=== PATIENT | male | born 1965 | race African-American/Black ===

== ENCOUNTER 2016-04-06 08:03 | Inpatient (IN) | payer MEDICAID, OTHER ==
[~2016-04-06] VITALS: Ht 177.8 cm; Wt 68.0 kg
[~2016-04-06 08:03] MED LIST: FERROUS SULFAT325 M2 ORAL; FOLIC ACID1 MG PO; MS CONTIN30 MG PO; NORCO 5-325 TA1 EACH ORAL; PERCOCET 5-3251 EACH ORAL; VICODIN ES 7.51 EACH PO; VITAMIN D1000 UNI1 ORAL
[2016-04-06] MEDS ORDERED: HYDROmorphone 1mg/ml Carpuject IVP ONE ×2 (08:30→10:45)
[2016-04-06] MEDS ORDERED: DiphenhydrAMINE 50mg/ml Inj IVP ONE (08:30)
[2016-04-06] MEDS ORDERED: Ketorolac 30mg Inj IV ONE (08:30)
--- NOTE | 2016-04-06 08:34 | Emergency Room Report ---
History of Present Illness General Chief Complaint: Pain Source: Patient Present Illness HPI Patient presents with body pain is consistent with an exacerbation of his sickle cell. He states that this began to get severe yesterday. His pain in his shoulders and most of his other joints. He denies any fevers or chills. He states his hands felt cold. He is on no significant pain medication at home. He denies any productive cough or chest pain. Denies any nausea vomiting or diarrhea. He has no dysuria. Pain is severe 10/10, constant, aching, joints, not radiating. No MAURICE. He was last admitted and transfused in December. Allergies: Coded Allergies: No Known Allergies (Verified , 12/24/09) Patient History Past Medical History: see triage record Social History: Denies: smoking Social History Narrative at home - girlfriend smokes Reviewed Nursing Documentation: PMH: Agreed, PSxH: Agreed Nursing Documentation-PM Past Medical History: No History, Except For Hx Cardiac Problems: No Hx Hypertension: No Hx Pacemaker: No Hx Asthma: No Hx COPD: No Hx Diabetes: No Hx Cancer: No Hx Gastrointestinal Problems: No Hx Dialysis: No Hx Neurological Problems: No - sickel cell Hx Cerebrovascular Accident: No Hx Seizures: No Review of Systems All Other Systems: negative except mentioned in HPI Physical Exam Vital Signs Date Time Temp Pulse Resp B/P Pulse Ox O2 Delivery O2 Flow Rate FiO2 04/06/16 08:12 98.2 93 24 197/126 96 Room Air Sp02 EP Interpretation: reviewed, normal General Appearance: GCS 15, mild distress - pain Head: normocephalic Eyes: bilateral eye PERRL, bilateral eye conjunctivae pale, bilateral eye normal inspection ENT: moist mucus membranes Neck: supple Respiratory: chest non-tender, lungs clear, normal breath sounds Cardiovascular #1: regular rate, rhythm Cardiovascular #2: 2+ radial (R) Gastrointestinal: normal inspection, normal bowel sounds, non tender, no mass, non-distended Musculoskeletal: back normal, gait/station normal, normal range of motion Neurologic: alert, oriented x3, grossly normal Psychiatric: mood/affect normal - though in pain Skin: warm/dry, pallor Medical Decision Making Diagnostic Impression: Primary Impression: Sickle cell crisis Additional Impressions: Anemia Qualified Codes: D63.8 - Anemia in other chronic diseases classified elsewhere Intractable pain Leukocytosis Qualified Codes: D72.829 - Elevated white blood cell count, unspecified ER Course The patient presents with body pain consistent with a sickle crisis. Differential includes sepsis, crisis, anemia amongst others. Evaluation with labs chest x-ray EKG is undertaken. In addition the patient will be given some hydration and also analgesia. The patient states oxygen helps him and so it shall be ordered. The patient still has significant pain. A second dose of Dilaudid is given to the patient. Labs are significant for leukocytosis and also low H&H. Retic high. Patient still with pain and he needs to be observed in the hospital. He was discussed with Dr. Tinsley who accepted the patient at [facility]. 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 No MD available so admit here. Contact Dr. Mchugh. Laboratory Tests Test 04/06/16 08:55 04/06/16 10:29 White Blood Count 17.3 K/UL (4.8-10.8) H Red Blood Count 2.50 M/UL (4.70-6.10) L Hemoglobin 8.0 G/DL (14.2-18.0) L Hematocrit 23.5 % (42.0-52.0) L Mean Corpuscular Volume 94 FL (80-99) Mean Corpuscular Hemoglobin 31.8 PG (27.0-31.0) H Mean Corpuscular Hemoglobin Concent 33.8 G/DL (32.0-36.0) Red Cell Distribution Width 16.7 % (11.6-14.8) H Platelet Count 210 K/UL (150-450) Mean Platelet Volume 8.2 FL (6.5-10.1) Neutrophils (%) (Auto) 71.2 % (45.0-75.0) Lymphocytes (%) (Auto) 17.9 % (20.0-45.0) L Monocytes (%) (Auto) 8.8 % (1.0-10.0) Eosinophils (%) (Auto) 1.6 % (0.0-3.0) Basophils (%) (Auto) 0.6 % (0.0-2.0) Reticulocyte Count 13.1 % (0.0-2.0) H Prothrombin Time 11.6 SEC (9.30-11.50) H Prothrombin Time INR 1.1 (0.9-1.1) PTT 24 SEC (23-33) Sodium Level 140 mEQ/L (135-145) Potassium Level 3.7 mEQ/L (3.4-4.9) Chloride Level 102 mEQ/L (98-107) Carbon Dioxide Level 24 mEQ/L (20-30) Anion Gap 14 (5-15) Blood Urea Nitrogen 15 mg/dL (7-23) Creatinine 0.8 mg/dL (0.7-1.2) Estimate Glomerular Filtration Rate > 60 mL/min (>60) Glucose Level 136 mg/dL (74-106) H Calcium Level 9.1 mg/dL (8.6-10.2) Total Bilirubin 2.0 mg/dL (0.0-1.2) H Direct Bilirubin 0.5 mg/dL (0.1-0.3) H Aspartate Amino Transferase (AST) 59 U/L (5-40) H Alanine Aminotransferase (ALT) 35 U/L (3-41) Alkaline Phosphatase 126 U/L (40-129) Total Creatine Kinase 51 U/L (38-174) Creatine Kinase MB < 1.5 ng/mL (< 6.7) Creatine Kinase MB Relative Index Troponin I < 0.30 ng/mL (<=0.30) Pro-B-Type Natriuretic Peptide 150 pg/mL (0-125) H Total Protein 6.9 g/dL (6.6-8.7) Albumin 4.5 g/dL (3.5-5.2) Globulin 2.4 g/dL Albumin/Globulin Ratio 1.8 (1.0-2.7) Urine Color Yellow Urine Appearance Clear Urine pH 6.5 (4.5-8.0) Urine Specific [place] 1.010 (1.005-1.035) Urine Protein 3+ (NEGATIVE) H Urine Glucose (UA) Negative (NEGATIVE) Urine Ketones Negative (NEGATIVE) Urine Occult Blood 3+ (NEGATIVE) H Urine Nitrite Negative (NEGATIVE) Urine Bilirubin Negative (NEGATIVE) Urine Urobilinogen 4 MG/DL (0.0-1.0) H Urine Leukocyte Esterase 1+ (NEGATIVE) H Urine RBC 2-4 /HPF (0 - 0) H Urine WBC 2-4 /HPF (0 - 0) Urine Squamous Epithelial Cells Occasional /LPF Urine Bacteria Few /HPF (NONE) Urine Opiates Screen Positive (NEGATIVE) H Urine Barbiturates Screen Negative (NEGATIVE) Phencyclidine (PCP) Screen Negative (NEGATIVE) Urine Amphetamines Screen Negative (NEGATIVE) Urine Benzodiazepines Screen Negative (NEGATIVE) Urine Cocaine Screen Negative (NEGATIVE) Urine Marijuana (THC) Screen Negative (NEGATIVE) EKG Diagnostic Results Rate: normal Rhythm: NSR ST Segments: no acute changes Rhythm Strip Diag. Results EP Interpretation: yes Rhythm: NSR, no PVC's, no ectopy Chest X-Ray Diagnostic Results EP Interpretation: Yes Findings: no consolidation, no effusion, no pneumothorax, no acute cardiopulmonary disease, other - increase R hilar node Number of Views: 1 Last Vital Signs Date Time Temp Pulse Resp B/P Pulse Ox O2 Delivery O2 Flow Rate FiO2 04/06/16 12:00 87 16 130/84 98 Nasal Cannula 2.0 04/06/16 11:15 98.2 Status: improved Disposition: ADMITTED INPATIENT Condition: Serious Carlos Powell M.D. Apr 06, 2016 08:34
[2016-04-06] MEDS ORDERED: Tubing IV Cassette IV ONE (08:42)
[2016-04-06 09:00] VITALS: BP 131/75
[2016-04-06 09:16] LABS: BASOPHILS % (AUTO) 0.6 % (0.0-2.0); EOSINOPHILS % (AUTO) 1.6 % (0.0-3.0); LYMPHOCYTES % (AUTO) 17.9 % (20.0-45.0); MEAN CORPUSCULAR HEMOGLOBIN 31.8 PG (27.0-31.0); MEAN CORPUSCULAR HGB CONC 33.8 G/DL (32.0-36.0); MEAN CORPUSCULAR VOLUME 94 FL (80-99); MEAN PLATELET VOLUME 8.2 FL (6.5-10.1); MONOCYTES % (AUTO) 8.8 % (1.0-10.0); NEUTROPHILS % (AUTO) 71.2 % (45.0-75.0); PLATELET COUNT 210 K/UL (150-450); RED CELL DISTRIBUTION WIDTH 16.7 % (11.6-14.8); WHITE BLOOD COUNT 17.3 K/UL (4.8-10.8)
[2016-04-06 09:17] LABS: INR 1.1 (0.9-1.1); PROTHROMBIN TIME 11.6 SEC (9.30-11.50)
[2016-04-06 09:23] LABS: ALANINE AMINOTRANSFERASE 35 U/L (3-41); ALBUMIN/GLOBULIN RATIO 1.8 (1.0-2.7); ANION GAP 14 (5-15); ASPARTATE AMINO TRANSFERASE 59 U/L (5-40); CALCIUM 9.1 mg/dL (8.6-10.2); CARBON DIOXIDE 24 mEQ/L (20-30); CHLORIDE 102 mEQ/L (98-107); CREATININE 0.8 mg/dL (0.7-1.2); GLOMERULAR FILTRATION RATE > 60 mL/min (>60); HEMOLYSIS 6; POTASSIUM 3.7 mEQ/L (3.4-4.9); SODIUM 140 mEQ/L (135-145); TOTAL PROTEIN 6.9 g/dL (6.6-8.7)
[2016-04-06 09:25] LABS: TROPONIN I < 0.30 ng/mL (<=0.30)
[2016-04-06 09:33] LABS: CKMB < 1.5 ng/mL (< 6.7)
[2016-04-06 09:44] LABS: BILIRUBIN,DIRECT 0.5 mg/dL (0.1-0.3)
[2016-04-06 10:40] LABS: APPEARANCE,URINE CLEAR; KETONES,URINE NEGATIVE (NEGATIVE); LEUKOCYTE ESTERASE ,URINE 1+ (NEGATIVE); NITRITE,URINE NEGATIVE (NEGATIVE); PH,URINE 6.5 (4.5-8.0); PROTEIN,URINE 3+ (NEGATIVE); UROBILINOGEN,URINE 4 MG/DL (0.0-1.0)
[2016-04-06 11:09] LABS: BACTERIA,URINE FEW /HPF; SQUAMOUS EPITHELIAL CELL,UR OCCASIONAL /LPF (NONE/OCC)
[2016-04-06 12:00] VITALS: BP 130/84
[2016-04-06 14:00] VITALS: BP 127/81
[2016-04-06 15:23] VITALS: BP 134/82
[2016-04-06] MEDS ORDERED: Zolpidem 5mg tab ORAL PRN (16:15)
[2016-04-06] MEDS ORDERED: Mylanta II UD 30ml ORAL PRN (16:15)
[2016-04-06] MEDS ORDERED: LORazepam Inj 2mg/ml 1ml IV PRN (16:15)
[2016-04-06 19:00] VITALS: BP 149/91
[2016-04-06] MEDS ORDERED: Heparin 5000 units/ml inj SUBQ SCH (21:00)
[2016-04-06] MEDS: Miralax 17gm pkt ORAL PRN (22:06)
[2016-04-07] VITALS: BP 116/67
[2016-04-07 04:00] VITALS: BP 108/67
[2016-04-07 07:21] LABS: ALANINE AMINOTRANSFERASE 40 U/L (3-41); ALBUMIN/GLOBULIN RATIO 1.5 (1.0-2.7); ANION GAP 15 (5-15); ASPARTATE AMINO TRANSFERASE 62 U/L (5-40); CALCIUM 8.7 mg/dL (8.6-10.2); CARBON DIOXIDE 23 mEQ/L (20-30); CHLORIDE 102 mEQ/L (98-107); CREATININE 0.8 mg/dL (0.7-1.2); GLOMERULAR FILTRATION RATE > 60 mL/min (>60); HEMOLYSIS 6; LACTATE DEHYDROGENASE 632 U/L (135-230); POTASSIUM 4.5 mEQ/L (3.4-4.9); SODIUM 140 mEQ/L (135-145); TOTAL PROTEIN 6.6 g/dL (6.6-8.7)
[2016-04-07 07:23] LABS: MEAN CORPUSCULAR HEMOGLOBIN 31.2 PG (27.0-31.0); MEAN CORPUSCULAR HGB CONC 33.1 G/DL (32.0-36.0); MEAN CORPUSCULAR VOLUME 95 FL (80-99); MEAN PLATELET VOLUME 7.6 FL (6.5-10.1); PLATELET COUNT 177 K/UL (150-450); RED BLOOD COUNT 2.34 M/UL (4.70-6.10); RED CELL DISTRIBUTION WIDTH 17.3 % (11.6-14.8); WHITE BLOOD COUNT 18.3 K/UL (4.8-10.8)
[2016-04-07 08:02] LABS: BILIRUBIN,DIRECT 0.9 mg/dL (0.1-0.3)
[2016-04-07 08:17] VITALS: BP 149/85
[2016-04-07 10:02] LABS: BAND NEUTROPHILS % (MANUAL) 0 % (0-8); BASOPHILS % (MANUAL) 0 % (0-2); EOSINOPHILS % (MANUAL) 0 % (0-3); LYMPHOCYTES % (MANUAL) 14 % (20-45); NEUTROPHILS % (MANUAL) 78 % (45-75); NUCLEATED RED BLOOD CELLS 1 /100 WBC; PLATELET ESTIMATE ADEQUATE; PLATELET MORPHOLOGY NORMAL; TOTAL CELLS COUNTED 100
[2016-04-07 10:07] LABS: ANISOCYTOSIS 2+
[2016-04-07 10:09] LABS: HYPOCHROMASIA 1+; SICKLE CELLS 1+
[2016-04-07 11:47] VITALS: BP 138/85
--- NOTE | 2016-04-07 13:45 | Diagnostic Imaging Report ---
Indication: Chest pain Technique: One view of the chest Comparison: none Findings: Inspiration is suboptimal. Lungs and pleural spaces are clear. Heart size is normal. There are degenerative changes of both shoulders. Mild bony sclerosis raises concern for systemic skeletal disease findings Impression: No acute process. Findings as noted
[2016-04-07 14:35] LABS: OTHERS PATHOLOGIST COMMENT
[2016-04-07 16:00] VITALS: BP 149/95
--- NOTE | 2016-04-07 18:23 | History and Physical ---
History of Present Illness General Date patient seen: Apr 07, 2016 Reason for Hospitalization: Pain Present Illness HPI 51 year old male with hx of sickle cell , presents with atient with body pain is consistent with an exacerbation of his sickle cell. He states that this began to get severe yesterday. His pain in his shoulders and most of his other joints. He was diagnosed to have sickle crisis and admitted for further evaluation. Allergies: Coded Allergies: No Known Allergies (Verified , 12/24/09) Medication History Scheduled Cholecalciferol (Vitamin D3)* (Vitamin D*), 2,000 UNITS ORAL DAILY, (Reported) Folic Acid* (Folic Acid*), 1 MG PO DAILY, (Reported) Hydrocodone Bit/Acetaminophen 5-325* ([place] 5-325*), 1 TAB ORAL Q6H Hydrocodone/Acetaminophen 7.5-750 (Vicodin Es 7.5-750), 1 TAB PO Q8H, (Reported) Morphine Sulfate* (Ms Contin*), 30 MG PO Q12H, (Reported) Miscellaneous Medications Ferrous Sulfate (Ferrous Sulfate), 325 MG ORAL, (Reported) Patient History Healthcare decision maker Resuscitation status Advanced Directive on File Physical Exam General Appearance: WD/WN Lines, tubes and drains: peripheral, central line HEENT: normocephalic, atraumatic Neck: non-tender, normal alignment Respiratory/Chest: chest wall non-tender, normal breath sounds Breasts: no masses Cardiovascular/Chest: normal rate Abdomen: normal bowel sounds, non tender Last 24 Hour Vital Signs Date Time Temp Pulse Resp B/P Pulse Ox O2 Delivery O2 Flow Rate FiO2 04/07/16 16:00 97.7 95 20 149/95 97 Room Air 2.0 04/07/16 11:47 98.2 102 20 138/85 98 Nasal Cannula 2.0 04/07/16 08:17 98.4 93 20 149/85 99 Nasal Cannula 2.0 04/07/16 04:00 98.0 81 18 108/67 93 Room Air 04/07/16 00:00 98.1 86 18 116/67 92 Room Air 04/06/16 22:36 99.3 04/06/16 19:00 99.1 98 20 149/91 100 Room Air 04/06/16 18:31 100 13 133/86 99 Nasal Cannula 2.0 Intake and Output 04/06/16 04/07/16 19:00 07:00 Intake Total 2000 ml 300 ml Output Total 400 ml Balance 2000 ml -100 ml IV Total 2000 ml 300 ml Output Urine Total 400 ml # Voids 1 3 # Bowel Movements 2 Laboratory Tests Test 04/07/16 05:15 White Blood Count 18.3 K/UL (4.8-10.8) H Red Blood Count 2.34 M/UL (4.70-6.10) L Hemoglobin 7.3 G/DL (14.2-18.0) L Hematocrit 22.1 % (42.0-52.0) L Mean Corpuscular Volume 95 FL (80-99) Mean Corpuscular Hemoglobin 31.2 PG (27.0-31.0) H Mean Corpuscular Hemoglobin Concent 33.1 G/DL (32.0-36.0) Red Cell Distribution Width 17.3 % (11.6-14.8) H Platelet Count 177 K/UL (150-450) Mean Platelet Volume 7.6 FL (6.5-10.1) Neutrophils (%) (Auto) % (45.0-75.0) Lymphocytes (%) (Auto) % (20.0-45.0) Monocytes (%) (Auto) % (1.0-10.0) Eosinophils (%) (Auto) % (0.0-3.0) Basophils (%) (Auto) % (0.0-2.0) Differential Total Cells Counted 100 Neutrophils % (Manual) 78 % (45-75) H Lymphocytes % (Manual) 14 % (20-45) L Monocytes % (Manual) 8 % (1-10) Eosinophils % (Manual) 0 % (0-3) Basophils % (Manual) 0 % (0-2) Band Neutrophils 0 % (0-8) Nucleated Red Blood Cells 1 /100 WBC Other Cell Type Pathologist comment Platelet Estimate Adequate Platelet Morphology Normal Hypochromasia 1+ Anisocytosis 2+ Sickle Cells 1+ H Sodium Level 140 mEQ/L (135-145) Potassium Level 4.5 mEQ/L (3.4-4.9) Chloride Level 102 mEQ/L (98-107) Carbon Dioxide Level 23 mEQ/L (20-30) Anion Gap 15 (5-15) Blood Urea Nitrogen 13 mg/dL (7-23) Creatinine 0.8 mg/dL (0.7-1.2) Estimat Glomerular Filtration Rate > 60 mL/min (>60) Glucose Level 105 mg/dL (74-106) Calcium Level 8.7 mg/dL (8.6-10.2) Total Bilirubin 2.6 mg/dL (0.0-1.2) H Direct Bilirubin 0.9 mg/dL (0.1-0.3) H Aspartate Amino Transf (AST/SGOT) 62 U/L (5-40) H Alanine Aminotransferase (ALT/SGPT) 40 U/L (3-41) Alkaline Phosphatase 131 U/L (40-129) H Lactate Dehydrogenase 632 U/L (135-230) H Total Protein 6.6 g/dL (6.6-8.7) Albumin 4.0 g/dL (3.5-5.2) Globulin 2.6 g/dL Albumin/Globulin Ratio 1.5 (1.0-2.7) Height (Feet): 5 Height (Inches): 10.00 Weight (Pounds): 150 Medications Current Medications Medications (Trade) Dose Ordered Sig/Shell Route PRN Reason Start Time Stop Time Status Last Admin Dose Admin Acetaminophen (Tylenol) 650 mg Q4H PRN ORAL fever 04/06/16 16:15 05/06/16 16:14 Al Hydroxide/Mg Hydroxide (Mylanta II) 30 ml Q6H PRN ORAL dyspepsia 04/06/16 16:15 05/06/16 16:14 Dextrose (Dextrose 50%) STAT PRN IV Hypoglycemia 04/06/16 16:15 05/06/16 16:14 Hydromorphone HCl (Dilaudid) 2 mg Q3H PRN IV pain 4-6 04/06/16 16:15 04/13/16 16:14 Hydromorphone HCl 3 mg 3 mg Q3H PRN IVP For Pain 7-10 04/06/16 16:15 04/13/16 16:14 04/07/16 18:02 Lorazepam (Ativan 2mg/ml 1ml) 0.5 mg Q4H PRN IV For Anxiety 04/06/16 16:15 04/13/16 16:14 Ondansetron HCl (Zofran) 4 mg Q6H PRN IVP Nausea & Vomiting 04/06/16 16:15 05/06/16 16:14 Polyethylene Glycol (Miralax) 17 gm HSPRN PRN ORAL Constipation 04/06/16 16:15 05/06/16 16:14 04/06/16 22:06 Sodium Chloride (0.45% NS 1000ml) 1,000 ml @ 75 mls/hr [id number] IV 04/06/16 17:30 05/06/16 17:29 04/07/16 06:11 Zolpidem Tartrate (Ambien) 5 mg HSPRN PRN ORAL Insomnia 04/06/16 16:15 05/06/16 16:14 Assessment/Plan Problem List: (1) Sickle cell crisis ICD Codes: D57.00 - Sickle cell crisis SNOMED: 096089585 (2) Anemia ICD Codes: D64.9 - Anemia, unspecified SNOMED: 068696633 Qualifiers: Qualified Codes: D63.8 - Anemia in other chronic diseases classified elsewhere (3) Intractable pain ICD Codes: R52 - Pain, unspecified SNOMED: [id number] Assessment/Plan IV fluids pain management check ldh and bilirubin nasal cannula. CATHERINE WAGONER Apr 07, 2016 18:23
[2016-04-07 19:00] VITALS: BP 146/92
[2016-04-07] MEDS: D5W IVPB PRN (21:01)
[2016-04-07] MEDS: HYDROMORPHONE IVPB PRN (21:01)
[2016-04-07] MEDS: Miralax 17gm pkt ORAL PRN (22:36)
[2016-04-08] MEDS: HYDROMORPHONE IVPB PRN ×8 (00:04→22:29)
[2016-04-08] MEDS: D5W IVPB PRN ×8 (00:04→22:29)
[2016-04-08 00:44] VITALS: BP 152/90
[2016-04-08 07:47] LABS: ALANINE AMINOTRANSFERASE 44 U/L (3-41); ALBUMIN/GLOBULIN RATIO 1.5 (1.0-2.7); ANION GAP 17 (5-15); ASPARTATE AMINO TRANSFERASE 55 U/L (5-40); CALCIUM 9.3 mg/dL (8.6-10.2); CARBON DIOXIDE 24 mEQ/L (20-30); CHLORIDE 96 mEQ/L (98-107); CREATININE 0.9 mg/dL (0.7-1.2); GLOMERULAR FILTRATION RATE > 60 mL/min (>60); HEMOLYSIS 7; LACTATE DEHYDROGENASE 649 U/L (135-230); MEAN CORPUSCULAR HEMOGLOBIN 30.7 PG (27.0-31.0); MEAN CORPUSCULAR HGB CONC 33.1 G/DL (32.0-36.0); MEAN CORPUSCULAR VOLUME 93 FL (80-99); MEAN PLATELET VOLUME 8.5 FL (6.5-10.1); PLATELET COUNT 178 K/UL (150-450); POTASSIUM 4.3 mEQ/L (3.4-4.9); RED BLOOD COUNT 2.58 M/UL (4.70-6.10); RED CELL DISTRIBUTION WIDTH 16.3 % (11.6-14.8); SODIUM 137 mEQ/L (135-145); TOTAL PROTEIN 7.5 g/dL (6.6-8.7)
[2016-04-08 07:59] VITALS: BP 129/89
[2016-04-08 08:30] LABS: BILIRUBIN,DIRECT 1.8 mg/dL (0.1-0.3)
[2016-04-08 08:33] LABS: CRP QUANT 9.3 mg/dL (< 0.5); MAGNESIUM 1.9 mg/dL (1.7-2.5); PHOSPHORUS 3.5 mg/dL (2.5-4.8)
[2016-04-08 09:18] LABS: ERYTHROCYTE SEDIMENTATION RATE 61 MM/HR (0-15)
[2016-04-08 11:04] LABS: ANISOCYTOSIS 1+; BAND NEUTROPHILS % (MANUAL) 0 % (0-8); BASOPHILS % (MANUAL) 0 % (0-2); EOSINOPHILS % (MANUAL) 1 % (0-3); HYPOCHROMASIA 1+; LYMPHOCYTES % (MANUAL) 23 % (20-45); NEUTROPHILS % (MANUAL) 64 % (45-75); NUCLEATED RED BLOOD CELLS 2 /100 WBC; PLATELET ESTIMATE ADEQUATE; PLATELET MORPHOLOGY NORMAL; POLYCHROMASIA 1+; TOTAL CELLS COUNTED 100
[2016-04-08 11:05] LABS: SICKLE CELLS 1+
[2016-04-08 11:51] VITALS: BP 133/88
--- NOTE | 2016-04-08 15:12 | Diagnostic Imaging Report ---
Indication: PAIN Technique: 3 views of the right shoulder Comparison: none Findings: The bones are diffusely demineralized with a prominent trabecular pattern suggesting systemic disease. There are degenerative changes of the humeral head. The joint space is preserved. No acute fractures. No dislocations. Impression:No acute bony trauma Degenerative proliferative changes of the right humeral head Extensive diffuse bony abnormality suggesting osseous changes related to systemic disease-correlate with clinical history
--- NOTE | 2016-04-08 15:18 | Pulmonology Progress Note ---
Assessment/Plan Problems: (1) Sickle cell crisis (2) Anemia (3) Intractable pain Assessment/Plan bilirubin rising continue iv hydration check LDH pain control Subjective ROS Limited/Unobtainable: No Constitutional: Reports: no symptoms HEENT: Repors: no symptoms Respiratory: Reports: no symptoms Cardiovascular: Reports: no symptoms Gastrointestinal/Abdominal: Reports: no symptoms Allergies: Coded Allergies: No Known Allergies (Verified , 12/24/09) Objective Last 24 Hour Vital Signs Date Time Temp Pulse Resp B/P Pulse Ox O2 Delivery O2 Flow Rate FiO2 04/08/16 12:52 97.9 04/08/16 11:51 97.9 98 21 133/88 98 Room Air 04/08/16 09:25 Room Air 04/08/16 07:59 98.0 93 20 129/89 97 Nasal Cannula 2.0 04/08/16 00:44 99.0 19 152/90 99 Room Air 04/07/16 19:00 99.5 95 20 146/92 100 Nasal Cannula 2.0 04/07/16 19:00 Room Air 04/07/16 16:00 97.7 95 20 149/95 97 Room Air 2.0 Intake and Output 04/07/16 04/08/16 19:00 07:00 Intake Total 1420 ml 1326 ml Output Total 650 ml 700 ml Balance 770 ml 626 ml Intake Oral 520 ml 120 ml IV Total 900 ml 1206 ml Output Urine Total 650 ml 700 ml # Voids 4 General Appearance: WD/WN HEENT: normocephalic, atraumatic Respiratory/Chest: chest wall non-tender, lungs clear Cardiovascular: normal peripheral pulses, normal rate Abdomen: normal bowel sounds, soft, non tender Extremities: no cyanosis Skin: no rash 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 Lymphatic: no neck adenopathy Laboratory Tests 04/08/16 05:30: White Blood Count 13.0H, Red Blood Count 2.58L, Hemoglobin 7.9L, Hematocrit 23.9L, Mean Corpuscular Volume 93, Mean Corpuscular Hemoglobin 30.7, Mean Corpuscular Hemoglobin Concent 33.1, Red Cell Distribution Width 16.3H, Platelet Count 178, Mean Platelet Volume 8.5, Neutrophils (%) (Auto) , Lymphocytes (%) (Auto) , Monocytes (%) (Auto) , Eosinophils (%) (Auto) , Basophils (%) (Auto) , Differential Total Cells Counted 100, Neutrophils % ( Manual) 64, Lymphocytes % (Manual) 23, Monocytes % (Manual) 12H, Eosinophils % ( Manual) 1, Basophils % (Manual) 0, Band Neutrophils 0, Nucleated Red Blood Cells 2, Platelet Estimate Adequate, Platelet Morphology Normal, Polychromasia 1 +, Hypochromasia 1+, Anisocytosis 1+, Sickle Cells 1+H, Erythrocyte Sedimentation Rate 61H, Sodium Level 137, Potassium Level 4.3, Chloride Level 96L, Carbon Dioxide Level 24, Anion Gap 17H, Blood Urea Nitrogen 10, Creatinine 0.9, Estimat Glomerular Filtration Rate > 60, Glucose Level 123H, Calcium Level 9.3, Phosphorus Level 3.5, Magnesium Level 1.9, Total Bilirubin 5.0H, Direct Bilirubin 1.8H, Aspartate Amino Transf (AST/SGOT) 55H, Alanine Aminotransferase (ALT/SGPT) 44H, Alkaline Phosphatase 166H, Lactate Dehydrogenase 649H, C- Reactive Protein, Quantitative 9.3H, Total Protein 7.5, Albumin 4.5, Globulin 3.0, Albumin/Globulin Ratio 1.5 Current Medications Medications (Trade) Dose Ordered Sig/Shell Route PRN Reason Start Time Stop Time Status Last Admin Dose Admin Acetaminophen (Tylenol) 650 mg Q4H PRN ORAL fever 04/06/16 16:15 05/06/16 16:14 Al Hydroxide/Mg Hydroxide (Mylanta II) 30 ml Q6H PRN ORAL dyspepsia 04/06/16 16:15 05/06/16 16:14 Dextrose STAT PRN IV Hypoglycemia 04/06/16 16:15 05/06/16 16:14 Hydromorphone HCl/ Dextrose (Dilaudid/D5W) 57 ml @ 228 mls/hr Q3H PRN IVPB severe pain 04/07/16 18:30 04/14/16 18:29 04/08/16 12:22 Lorazepam (Ativan 2mg/ml 1ml) 0.5 mg Q4H PRN IV For Anxiety 04/06/16 16:15 04/13/16 16:14 Ondansetron HCl (Zofran) 4 mg Q6H PRN IVP Nausea & Vomiting 04/06/16 16:15 05/06/16 16:14 Polyethylene Glycol (Miralax) 17 gm HSPRN PRN ORAL Constipation 04/06/16 16:15 05/06/16 16:14 04/07/16 22:36 Sodium Chloride 1,000 ml @ 75 mls/hr [id number] IV 04/06/16 17:30 05/06/16 17:29 04/08/16 12:00 Zolpidem Tartrate (Ambien) 5 mg HSPRN PRN ORAL Insomnia 04/06/16 16:15 05/06/16 16:14 CATHERINE WAGONER Apr 08, 2016 15:18
[2016-04-08 16:00] VITALS: BP 160/96
[2016-04-08] MEDS: Miralax 17gm pkt ORAL PRN (17:14)
[2016-04-08 20:00] VITALS: BP 141/89
[2016-04-08 20:20] LABS: HEMOLYSIS 21; IRON 92 ug/dL (59-158); TOTAL IRON BINDING CAPACITY 207 ug/dL (250-400)
[2016-04-08 20:24] LABS: FERRITIN 1409 ng/mL (10-230)
[2016-04-09] VITALS: BP 131/85
[2016-04-09] MEDS: D5W IVPB PRN ×7 (01:52→19:58)
[2016-04-09] MEDS: HYDROMORPHONE IVPB PRN ×7 (01:52→19:58)
[2016-04-09 04:00] VITALS: BP 140/84
[2016-04-09 07:26] LABS: MAGNESIUM 1.7 mg/dL (1.7-2.5); PHOSPHORUS 3.5 mg/dL (2.5-4.8)
[2016-04-09 07:38] LABS: ALANINE AMINOTRANSFERASE 36 U/L (3-41); ALBUMIN/GLOBULIN RATIO 1.8 (1.0-2.7); ANION GAP 15 (5-15); ASPARTATE AMINO TRANSFERASE 40 U/L (5-40); CARBON DIOXIDE 25 mEQ/L (20-30); CHLORIDE 97 mEQ/L (98-107); CREATININE 0.6 mg/dL (0.7-1.2); GLOMERULAR FILTRATION RATE > 60 mL/min (>60); HEMOLYSIS 6; LACTATE DEHYDROGENASE 576 U/L (135-230); POTASSIUM 4.5 mEQ/L (3.4-4.9); SODIUM 137 mEQ/L (135-145); TOTAL PROTEIN 6.2 g/dL (6.6-8.7)
[2016-04-09 07:52] LABS: MEAN CORPUSCULAR HEMOGLOBIN 30.8 PG (27.0-31.0); MEAN CORPUSCULAR HGB CONC 32.8 G/DL (32.0-36.0); MEAN CORPUSCULAR VOLUME 94 FL (80-99); MEAN PLATELET VOLUME 8.2 FL (6.5-10.1); PLATELET COUNT 178 K/UL (150-450); RED BLOOD COUNT 2.35 M/UL (4.70-6.10); RED CELL DISTRIBUTION WIDTH 16.6 % (11.6-14.8); WHITE BLOOD COUNT 11.2 K/UL (4.8-10.8)
[2016-04-09 08:14] VITALS: BP 152/89
[2016-04-09 08:29] LABS: BILIRUBIN,DIRECT 1.2 mg/dL (0.1-0.3)
--- NOTE | 2016-04-09 09:37 | General Progress Note ---
Assessment/Plan Assessment/Plan (1) Osteoarthritis of multiple joints (2) Pain in joint, multiple sites (3) Sickle cell crisis (4) Sickle cell disease (5) Intractable pain Assessment & Plan: Pt will be continued on Dilaudid as needed. Pt was d/w Dr. Watts and he concurred. Thank you for the courtesy of this consultation. Subjective Date patient seen: Apr 09, 2016 Time patient seen: 08:00 - am Allergies: Coded Allergies: No Known Allergies (Verified , 12/24/09) Subjective Constitutional: Denies: chills, diaphoresis, fever, malaise, no symptoms, other , weakness HEENT: Denies: blurred vision, double vision, ear discharge, ear pain, eye pain , mouth pain, mouth swelling, no symptoms, nose congestion, nose pain, other, tearing, throat pain, throat swelling Cardiovascular: Denies: chest pain, edema, irregular heart rate, lightheadedness, no symptoms, other, palpitations, syncope Respiratory: Denies: SOB at rest, SOB with excertion, cough, no symptoms, orthopnea, other, shortness of breath, sputum, stridor, wheezing Gastrointestinal/Abdominal: Denies: abdomen distended, abdominal pain, black stools, blood in stool, constipated, diarrhea, difficulty swallowing, nausea, no symptoms, other, poor appetite, poor fluid intake, rectal bleeding, tarry stools, vomiting Genitourinary: Denies: burning, discharge, flank pain, frequency, hematuria, incontinence, no symptoms, other, pain, urgency Neurologic/Psychiatric: Denies: anxiety, depressed, emotional problems, headache, no symptoms, numbness, other, paresthesia, pre-existing deficit, seizure, tingling, tremors, weakness Endocrine: Denies: excessive sweating, flushing, increased hunger, increased thirst, increased urine, intolerance to cold, intolerance to heat, no symptoms, other, unexplained weight gain, unexplained weight loss Hematologic/Lymphatic: Denies: anemia, easy bleeding, easy bruising, no symptoms, other Subjective Pt is a known pt from prior admissions and is back c/o severe pain throughout his body mostly in his right shoulder with movement. He is on Dilaudid 4mg IVPB q3H PRN severe pain which has kept his pain at a moderate level. Xray of right shoulder was done and reviewed with pt. Objective Last 24 Hour Vital Signs Date Time Temp Pulse Resp B/P Pulse Ox O2 Delivery O2 Flow Rate FiO2 04/09/16 08:14 98.4 97 16 152/89 95 Room Air 04/09/16 04:00 98.8 91 18 140/84 96 Room Air 04/09/16 00:00 98.4 94 20 131/85 96 Room Air 04/08/16 23:35 98.4 04/08/16 20:00 100.6 104 18 141/89 93 Room Air 04/08/16 16:00 98.4 101 19 160/96 98 Room Air 04/08/16 12:52 97.9 04/08/16 11:51 97.9 98 21 133/88 98 Room Air Intake and Output 04/08/16 04/09/16 19:00 07:00 Intake Total 1944 ml 1350 ml Output Total 700 ml 500 ml Balance 1244 ml 850 ml Intake Oral 720 ml 180 ml IV Total 1224 ml 1170 ml Output Urine Total 700 ml 500 ml # Voids 1 3 Laboratory Tests 04/08/16 18:50: Reticulocyte Count 6.5H 04/08/16 20:45: Folate [Pending] 04/09/16 05:15: White Blood Count 11.2H, Red Blood Count 2.35L, Hemoglobin 7.2L, Hematocrit 22.1L, Mean Corpuscular Volume 94, Mean Corpuscular Hemoglobin 30.8, Mean Corpuscular Hemoglobin Concent 32.8, Red Cell Distribution Width 16.6H, Platelet Count 178, Mean Platelet Volume 8.2, Neutrophils (%) (Auto) , Lymphocytes (%) (Auto) , Monocytes (%) (Auto) , Eosinophils (%) (Auto) , Basophils (%) (Auto) , Neutrophils % (Manual) [Pending], Lymphocytes % (Manual) [Pending], Platelet Estimate [Pending], Platelet Morphology [Pending], Sodium Level 137, Potassium Level 4.5, Chloride Level 97L, Carbon Dioxide Level 25, Anion Gap 15, Blood Urea Nitrogen 8, Creatinine 0.6L, Estimat Glomerular Filtration Rate > 60, Glucose Level 100, Calcium Level 9.0, Phosphorus Level 3.5 , Magnesium Level 1.7, Total Bilirubin 3.8H, Direct Bilirubin 1.2H, Aspartate Amino Transf (AST/SGOT) 40, Alanine Aminotransferase (ALT/SGPT) 36, Alkaline Phosphatase 165H, Lactate Dehydrogenase 576H, Total Protein 6.2L, Albumin 4.0, Globulin 2.2, Albumin/Globulin Ratio 1.8 Height (Feet): 5 Height (Inches): 10.00 Weight (Pounds): 150 Objective General Appearance: no apparent distress, alert EENT: PERRL/EOMI, normal ENT inspection Neck: normal alignment, supple Cardiovascular: normal rate, regular rhythm Abdomen: non tender, soft Extremities: ROM decreased due to patients pain Edema: no edema noted Arm (L), no edema noted Arm (R), no edema noted Leg (L), no edema noted Leg (R), no edema noted Pedal (L), no edema noted Pedal (R), no edema noted Generalized Neurologic: alert, oriented x 3 Skin: warm/dry Procedure: XRAY Shoulder Compl R Findings: The bones are diffusely demineralized with a prominent trabecular pattern suggesting systemic disease. There are degenerative changes of the humeral head. The joint space is preserved. No acute fractures. No dislocations. Impression:No acute bony trauma Degenerative proliferative changes of the right humeral head Extensive diffuse bony abnormality suggesting osseous changes related to systemic disease-correlate with clinical history ISMAEL CORTEZ Apr 09, 2016 09:37
[2016-04-09 10:29] LABS: ANISOCYTOSIS 1+; BAND NEUTROPHILS % (MANUAL) 0 % (0-8); BASOPHILS % (MANUAL) 0 % (0-2); EOSINOPHILS % (MANUAL) 0 % (0-3); HYPOCHROMASIA 1+; LYMPHOCYTES % (MANUAL) 25 % (20-45); NEUTROPHILS % (MANUAL) 61 % (45-75); PLATELET ESTIMATE ADEQUATE; PLATELET MORPHOLOGY NORMAL; POLYCHROMASIA 1+; TARGET CELLS OCCASIONAL; TOTAL CELLS COUNTED 100
[2016-04-09 10:30] LABS: SICKLE CELLS OCCASIONAL
[2016-04-09 11:29] VITALS: BP 134/85
--- NOTE | 2016-04-09 14:42 | Pulmonology Progress Note ---
Assessment/Plan Problems: (1) Sickle cell crisis (2) Anemia (3) Intractable pain Assessment/Plan bilirubin better today continue iv hydration check LDH pain control Subjective ROS Limited/Unobtainable: No Interval Events: still c/o left shoulder pain Allergies: Coded Allergies: No Known Allergies (Verified , 12/24/09) Objective Last 24 Hour Vital Signs Date Time Temp Pulse Resp B/P Pulse Ox O2 Delivery O2 Flow Rate FiO2 04/09/16 11:29 99.7 103 18 134/85 94 Room Air 04/09/16 08:14 98.4 97 16 152/89 95 Room Air 04/09/16 04:00 98.8 91 18 140/84 96 Room Air 04/09/16 00:00 98.4 94 20 131/85 96 Room Air 04/08/16 23:35 98.4 04/08/16 20:00 100.6 104 18 141/89 93 Room Air 04/08/16 16:00 98.4 101 19 160/96 98 Room Air Intake and Output 04/08/16 04/09/16 19:00 07:00 Intake Total 1944 ml 1350 ml Output Total 700 ml 500 ml Balance 1244 ml 850 ml Intake Oral 720 ml 180 ml IV Total 1224 ml 1170 ml Output Urine Total 700 ml 500 ml # Voids 1 3 General Appearance: WD/WN HEENT: normocephalic, anicteric Respiratory/Chest: chest wall non-tender, normal breath sounds Cardiovascular: normal peripheral pulses, normal rate Abdomen: normal bowel sounds, soft, non tender Genitourinary: normal external genitalia Extremities: no clubbing 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, no motor/sensory deficits Laboratory Tests 04/08/16 18:50: Reticulocyte Count 6.5H 04/08/16 20:45: Folate [Pending] 04/09/16 05:15: White Blood Count 11.2H, Red Blood Count 2.35L, Hemoglobin 7.2L, Hematocrit 22.1L, Mean Corpuscular Volume 94, Mean Corpuscular Hemoglobin 30.8, Mean Corpuscular Hemoglobin Concent 32.8, Red Cell Distribution Width 16.6H, Platelet Count 178, Mean Platelet Volume 8.2, Neutrophils (%) (Auto) , Lymphocytes (%) (Auto) , Monocytes (%) (Auto) , Eosinophils (%) (Auto) , Basophils (%) (Auto) , Differential Total Cells Counted 100, Neutrophils % ( Manual) 61, Lymphocytes % (Manual) 25, Monocytes % (Manual) 14H, Eosinophils % ( Manual) 0, Basophils % (Manual) 0, Band Neutrophils 0, Platelet Estimate Adequate, Platelet Morphology Normal, Polychromasia 1+, Hypochromasia 1+, Anisocytosis 1+, Sickle Cells OccasionalH, Target Cells Occasional, Sodium Level 137, Potassium Level 4.5, Chloride Level 97L, Carbon Dioxide Level 25, Anion Gap 15, Blood Urea Nitrogen 8, Creatinine 0.6L, Estimat Glomerular Filtration Rate > 60, Glucose Level 100, Calcium Level 9.0, Phosphorus Level 3.5 , Magnesium Level 1.7, Total Bilirubin 3.8H, Direct Bilirubin 1.2H, Aspartate Amino Transf (AST/SGOT) 40, Alanine Aminotransferase (ALT/SGPT) 36, Alkaline Phosphatase 165H, Lactate Dehydrogenase 576H, Total Protein 6.2L, Albumin 4.0, Globulin 2.2, Albumin/Globulin Ratio 1.8 Current Medications Medications (Trade) Dose Ordered Sig/Shell Route PRN Reason Start Time Stop Time Status Last Admin Dose Admin Acetaminophen (Tylenol) 650 mg Q4H PRN ORAL fever 04/06/16 16:15 05/06/16 16:14 04/08/16 22:36 Al Hydroxide/Mg Hydroxide (Mylanta II) 30 ml Q6H PRN ORAL dyspepsia 04/06/16 16:15 05/06/16 16:14 Dextrose STAT PRN IV Hypoglycemia 04/06/16 16:15 05/06/16 16:14 Hydromorphone HCl/ Dextrose (Dilaudid/D5W) 57 ml @ 228 mls/hr Q3H PRN IVPB severe pain 04/07/16 18:30 04/14/16 18:29 04/09/16 14:02 Lorazepam (Ativan 2mg/ml 1ml) 0.5 mg Q4H PRN IV For Anxiety 04/06/16 16:15 04/13/16 16:14 Ondansetron HCl (Zofran) 4 mg Q6H PRN IVP Nausea & Vomiting 04/06/16 16:15 05/06/16 16:14 Polyethylene Glycol (Miralax) 17 gm HSPRN PRN ORAL Constipation 04/06/16 16:15 05/06/16 16:14 04/08/16 17:14 Sodium Chloride 1,000 ml @ 75 mls/hr [id number] IV 04/06/16 17:30 05/06/16 17:29 04/09/16 01:03 Zolpidem Tartrate (Ambien) 5 mg HSPRN PRN ORAL Insomnia 04/06/16 16:15 05/06/16 16:14 CATHERINE WAGONER Apr 09, 2016 14:42
[2016-04-09] MEDS: Vitamin D 1000 IU Tab ORAL SCH (15:46)
[2016-04-09 16:00] VITALS: BP 137/83
[2016-04-09] MEDS: Miralax 17gm pkt ORAL PRN (21:35)
[2016-04-10] VITALS: BP 149/93
[2016-04-10] MEDS: HYDROMORPHONE IVPB PRN ×7 (00:22→23:56)
[2016-04-10] MEDS: D5W IVPB PRN ×7 (00:22→23:56)
[2016-04-10 04:00] VITALS: BP 133/81
--- NOTE | 2016-04-10 05:17 | Consultation ---
DATE OF CONSULTATION: 04/09/2016 NOTE: "POOR AUDIO QUALITY" HEMATOLOGY/ONCOLOGY CONSULTATION CONSULTING PHYSICIAN: Nestor Roy M.D. REQUESTING PHYSICIAN: Jessica Mchugh M.D. REASON FOR CONSULTATION: Evaluation of sickle cell crisis. IDENTIFYING DATA: Dear Dr. Jessica Mchugh, The patient is a pleasant 51-year-old male of descent. He has a past medical history significant for sickle cell crisis, has been admitted multiple time in the past for sickle cell disease, has had pain throughout his body and lower extremities, this time complains of pain in his shoulders. I have been following his . He has not been taking any hydroxyurea for many years since he does not find it efficacious and does not have a sickle cell specialist who he sees regularly. Hematology service was consulted for further evaluation and treatment. PAST MEDICAL HISTORY: Significant for sickle cell disease, iron-deficiency anemia, history of multiple crisis in the past, and hyperbilirubinemia. PAST SURGICAL HISTORY: . ALLERGIES: No known drug allergy. SOCIAL HISTORY: . FAMILY HISTORY: Significant for sickle cell disease. REVIEW OF SYSTEMS: Constitutional: No fevers, chills, or night sweats. Skin: No rashes, lumps, or itching. HEENT: No headache, hearing or vision changes. Breasts: No lumps, pain, or discharge. Pulmonary: No cough, sputum, or shortness of breath. Cardiovascular: No chest pain, tightness, or palpitations. Gastrointestinal: No nausea or vomiting, continues to have discomfort. Genitourinary: No dysuria, frequency, or urgency. Musculoskeletal: No joint swelling, muscle pain, or trauma. . PHYSICAL EXAMINATION: GENERAL: The patient is in no acute distress. VITAL SIGNS: Temperature is 98.1 degrees Fahrenheit , pulse of 89, respiratory rate is 12, blood pressure 111/78, and pulse oximetry 98% on room air. PULMONARY: . CARDIOVASCULAR: Regular rate and rhythm. . ABDOMEN: Soft, nontender, and nondistended. EXTREMITIES: A 1+ edema. LABORATORY AND DIAGNOSTIC DATA: WBC 11.3, hemoglobin 7.2, hematocrit 22, and platelet count 178,000. Imaging, shoulder x-ray on 04/04/2016 shows extensive disease disease, degenerative changes in the right humeral head. Chest x-ray from shows no acute cardiopulmonary process. ASSESSMENT: 1. Sickle cell crisis. The patient is on fluids as well as pain control and I have recommended does not want to and he does not find it effective. 2. Decreased hemoglobin and hematocrit, most likely secondary to sickle cell disease sickle cell crisis. 3. Hyperbilirubinemia. 4. Leukocytosis secondary to likely hemolysis from sickle cell crisis. 5. History of avascular necrosis. 6. History of cholecystectomy. RECOMMENDATIONS: 1. Monitor counts. 2. Continue fluids as needed. 3. Pain control. 4. Incentive spirometry ordered. 5. Hemolysis panel as well as anemia workup. 6. Ultrasound of the abdomen is pending to evaluate liver and spleen. 7. Follow up on pain management recommendations. 8. Monitor white counts. 9. Monitor hemolysis. 10. Transfuse patient's symptoms, if hemoglobin drops to less than 7. 11. DVT prophylaxis with SCDs. 12. . 13. We recommend again the use of hydroxyurea, however, the patient at this time declines it given he has not found it effective. I have explained to him that it takes for benefit of hydroxyurea to be noticed, however, the patient this time is declining to use. 14. Recommend to follow up with Hematology Clinic. 15. Discussed with staff. Thank you, Dr. Jessica Mchugh, for this kind referral. Please do not hesitate to contact me if you have any further questions. Nestor Roy M.D. DR: MAR JOB#: [id number] CC:
[2016-04-10 08:09] VITALS: BP 116/67
[2016-04-10] MEDS: Vitamin D 1000 IU Tab ORAL SCH (09:21)
--- NOTE | 2016-04-10 11:22 | General Progress Note ---
Assessment/Plan Assessment/Plan ASSESSMENT: 1. Sickle cell crisis. The patient is on fluids as well as pain control, currently is declining hydroxyurea even though discussed extensively can improve overall survival, minimize hospitalizations 2. Anemia 2/2 SS disease, ferritin 1400 3. Hyperbilirubinemia. 4. Leukocytosis secondary to likely hemolysis from sickle cell crisis. 5. History of avascular necrosis. 6. History of cholecystectomy. 7. Reticulocytosis RECOMMENDATIONS: 1. Monitor counts. 2. Continue fluids as needed. 3. Pain control. 4. Incentive spirometry ordered. 5. Hemolysis panel reviewed 6. Ultrasound of the abdomen is pending to evaluate liver and spleen. 7. Follow up on pain management recs. 8. Monitor for hemolysis. 9. Transfuse with 1 unit prbc if patient symptomatic 10. DVT prophylaxis with SCDs. 11. Recommend hydroxyurea and heme followup 12. Discussed with staff. Thank you, Guicho Roy MD Subjective Constitutional: Reports: no symptoms HEENT: Reports: no symptoms Cardiovascular: Reports: no symptoms Respiratory: Reports: no symptoms Gastrointestinal/Abdominal: Reports: poor appetite Genitourinary: Reports: no symptoms Neurologic/Psychiatric: Reports: no symptoms Endocrine: Reports: no symptoms Hematologic/Lymphatic: Reports: anemia Allergies: Coded Allergies: No Known Allergies (Verified , 12/24/09) Subjective stable, no fevers or chills noted, no hematochezia or hematemesis Objective Last 24 Hour Vital Signs Date Time Temp Pulse Resp B/P Pulse Ox O2 Delivery O2 Flow Rate FiO2 04/10/16 08:09 98.1 90 19 116/67 98 Room Air 04/10/16 04:00 98.2 86 18 133/81 96 Room Air 04/10/16 00:00 97.2 108 20 149/93 100 Room Air 04/09/16 20:28 99.3 04/09/16 16:00 99.3 104 16 137/83 96 Room Air 04/09/16 11:29 99.7 103 18 134/85 94 Room Air Intake and Output 04/09/16 04/10/16 19:00 07:00 Intake Total 1809 ml 2263.5 ml Output Total 1300 ml 800 ml Balance 509 ml 1463.5 ml Intake Oral 700 ml 1320 ml IV Total 1109 ml 943.5 ml Output Urine Total 1300 ml 800 ml # Voids 2 6 Height (Feet): 5 Height (Inches): 10.00 Weight (Pounds): 150 General Appearance: no apparent distress EENT: normal ENT inspection Neck: supple Cardiovascular: normal rate Respiratory/Chest: lungs clear Abdomen: non tender Extremities: non-tender Edema: 1+ Leg (L), 1+ Leg (R) Edema: mild edema Neurologic: alert Skin: warm/dry GUICHO ROY Apr 10, 2016 11:22
[2016-04-10 11:31] VITALS: BP 124/74
[2016-04-10 12:39] LABS: MEAN CORPUSCULAR HEMOGLOBIN 31.3 PG (27.0-31.0); MEAN CORPUSCULAR HGB CONC 33.2 G/DL (32.0-36.0); MEAN CORPUSCULAR VOLUME 94 FL (80-99); MEAN PLATELET VOLUME 8.1 FL (6.5-10.1); PLATELET COUNT 219 K/UL (150-450); RED BLOOD COUNT 2.56 M/UL (4.70-6.10); RED CELL DISTRIBUTION WIDTH 15.8 % (11.6-14.8)
[2016-04-10 12:42] LABS: WHITE BLOOD COUNT 23.9 K/UL (4.8-10.8)
[2016-04-10] MEDS ORDERED: 1/2 NS 1000ml IV ONE (13:21)
--- NOTE | 2016-04-10 13:31 | Pulmonology Progress Note ---
Assessment/Plan Problems: (1) Sickle cell crisis (2) Anemia (3) Intractable pain Assessment/Plan bilirubin better today continue iv hydration check LDH, less increased WBC is secondary to nucleated cells pain control Subjective ROS Limited/Unobtainable: No Interval Events: feeling better Allergies: Coded Allergies: No Known Allergies (Verified , 12/24/09) Objective Last 24 Hour Vital Signs Date Time Temp Pulse Resp B/P Pulse Ox O2 Delivery O2 Flow Rate FiO2 04/10/16 11:31 98.0 101 19 124/74 97 Room Air 04/10/16 08:09 98.1 90 19 116/67 98 Room Air 04/10/16 04:00 98.2 86 18 133/81 96 Room Air 04/10/16 00:00 97.2 108 20 149/93 100 Room Air 04/09/16 20:28 99.3 04/09/16 16:00 99.3 104 16 137/83 96 Room Air Intake and Output 04/09/16 04/10/16 19:00 07:00 Intake Total 1809 ml 2263.5 ml Output Total 1300 ml 800 ml Balance 509 ml 1463.5 ml Intake Oral 700 ml 1320 ml IV Total 1109 ml 943.5 ml Output Urine Total 1300 ml 800 ml # Voids 2 6 General Appearance: WD/WN HEENT: normocephalic, atraumatic Respiratory/Chest: chest wall non-tender, lungs clear Cardiovascular: normal peripheral pulses, normal rate Abdomen: normal bowel sounds, soft, non tender Genitourinary: normal external genitalia Skin: no rash Neurologic/Psychiatric: carpenter cradle and dolly II-XII grossly normal Laboratory Tests 04/10/16 12:10: White Blood Count 23.9#*H, Red Blood Count 2.56L, Hemoglobin 8.0L, Hematocrit 24.2L, Mean Corpuscular Volume 94, Mean Corpuscular Hemoglobin 31.3H, Mean Corpuscular Hemoglobin Concent 33.2, Red Cell Distribution Width 15.8H, Platelet Count 219, Mean Platelet Volume 8.1, Neutrophils (%) (Auto) , Lymphocytes (%) (Auto) , Monocytes (%) (Auto) , Eosinophils (%) (Auto) , Basophils (%) (Auto) , Neutrophils % (Manual) [Pending], Lymphocytes % (Manual) [Pending], Platelet Estimate [Pending], Platelet Morphology [Pending] Current Medications Medications (Trade) Dose Ordered Sig/Shell Route PRN Reason Start Time Stop Time Status Last Admin Dose Admin Acetaminophen (Tylenol) 650 mg Q4H PRN ORAL fever 04/06/16 16:15 05/06/16 16:14 04/08/16 22:36 Al Hydroxide/Mg Hydroxide (Mylanta II) 30 ml Q6H PRN ORAL dyspepsia 04/06/16 16:15 05/06/16 16:14 Dextrose STAT PRN IV Hypoglycemia 04/06/16 16:15 05/06/16 16:14 Ferrous Sulfate (Feosol) 325 mg THREE TIMES A DAY ORAL 04/09/16 18:00 05/09/16 17:59 04/10/16 12:40 Folic Acid (Folate) 1 mg DAILY ORAL 04/09/16 15:30 05/09/16 15:29 04/10/16 09:21 Hydromorphone HCl/ Dextrose (Dilaudid/D5W) 57 ml @ 228 mls/hr Q3H PRN IVPB severe pain 04/07/16 18:30 04/14/16 18:29 04/10/16 12:41 Lorazepam (Ativan 2mg/ml 1ml) 0.5 mg Q4H PRN IV For Anxiety 04/06/16 16:15 04/13/16 16:14 Ondansetron HCl (Zofran) 4 mg Q6H PRN IVP Nausea & Vomiting 04/06/16 16:15 05/06/16 16:14 Polyethylene Glycol (Miralax) 17 gm HSPRN PRN ORAL Constipation 04/06/16 16:15 05/06/16 16:14 04/09/16 21:35 Sodium Chloride 1,000 ml @ 75 mls/hr [id number] IV 04/06/16 17:30 05/06/16 17:29 04/10/16 07:41 Vitamin D (Vitamin D) 1,000 intlu DAILY ORAL 04/09/16 15:30 05/09/16 15:29 04/10/16 09:21 Zolpidem Tartrate (Ambien) 5 mg HSPRN PRN ORAL Insomnia 04/06/16 16:15 05/06/16 16:14 CATHERINE WAGONER Apr 10, 2016 13:31
[2016-04-10] MEDS ORDERED: VICODIN HP 10-1 EACH ORAL (13:33)
[2016-04-10 13:35] LABS: ANISOCYTOSIS 1+; BAND NEUTROPHILS % (MANUAL) 3 % (0-8); BASOPHILS % (MANUAL) 0 % (0-2); EOSINOPHILS % (MANUAL) 2 % (0-3); HYPOCHROMASIA 1+; LYMPHOCYTES % (MANUAL) 16 % (20-45); NEUTROPHILS % (MANUAL) 73 % (45-75); PLATELET ESTIMATE ADEQUATE; PLATELET MORPHOLOGY NORMAL; POIKILOCYTOSIS 1+; TARGET CELLS OCCASIONAL; TOTAL CELLS COUNTED 100
[2016-04-10 15:49] VITALS: BP 134/77
[2016-04-10 20:00] VITALS: BP 142/86
[2016-04-11] VITALS (7 sets, daily range): BP systolic 112–140; BP diastolic 59–88
[2016-04-11] MEDS: D5W IVPB PRN ×5 (03:03→19:39)
[2016-04-11] MEDS: HYDROMORPHONE IVPB PRN ×5 (03:03→19:39)
[2016-04-11 07:52] LABS: MEAN CORPUSCULAR HEMOGLOBIN 30.5 PG (27.0-31.0); MEAN CORPUSCULAR HGB CONC 33.1 G/DL (32.0-36.0); MEAN CORPUSCULAR VOLUME 92 FL (80-99); MEAN PLATELET VOLUME 8.3 FL (6.5-10.1); PLATELET COUNT 243 K/UL (150-450); RED BLOOD COUNT 2.15 M/UL (4.70-6.10); WHITE BLOOD COUNT 15.6 K/UL (4.8-10.8)
[2016-04-11 08:12] LABS: INR 1.1 (0.9-1.1); PROTHROMBIN TIME 10.9 SEC (9.30-11.50)
[2016-04-11 08:18] LABS: ALANINE AMINOTRANSFERASE 41 U/L (3-41); ALBUMIN/GLOBULIN RATIO 1.8 (1.0-2.7); ANION GAP 14 (5-15); ASPARTATE AMINO TRANSFERASE 34 U/L (5-40); CALCIUM 8.8 mg/dL (8.6-10.2); CARBON DIOXIDE 25 mEQ/L (20-30); CHLORIDE 100 mEQ/L (98-107); CREATININE 0.6 mg/dL (0.7-1.2); GLOMERULAR FILTRATION RATE > 60 mL/min (>60); HEMOLYSIS 1; MAGNESIUM 1.9 mg/dL (1.7-2.5); PHOSPHORUS 4.2 mg/dL (2.5-4.8); POTASSIUM 4.2 mEQ/L (3.4-4.9); SODIUM 139 mEQ/L (135-145)
[2016-04-11 08:30] LABS: BILIRUBIN,DIRECT 0.6 mg/dL (0.1-0.3)
[2016-04-11] MEDS: Vitamin D 1000 IU Tab ORAL SCH (09:33)
[2016-04-11 10:01] LABS: ANISOCYTOSIS 1+; BAND NEUTROPHILS % (MANUAL) 0 % (0-8); BASOPHILS % (MANUAL) 0 % (0-2); EOSINOPHILS % (MANUAL) 6 % (0-3); HYPOCHROMASIA 1+; LYMPHOCYTES % (MANUAL) 12 % (20-45); MICROCYTES 1+; NEUTROPHILS % (MANUAL) 70 % (45-75); PLATELET ESTIMATE ADEQUATE; PLATELET MORPHOLOGY NORMAL; POIKILOCYTOSIS 1+; POLYCHROMASIA OCCASIONAL; TOTAL CELLS COUNTED 100
--- NOTE | 2016-04-11 11:40 | General Progress Note ---
Assessment/Plan Assessment/Plan (1) Osteoarthritis of multiple joints (2) Pain in joint, multiple sites (3) Sickle cell crisis (4) Sickle cell disease (5) Intractable pain Assessment & Plan: Pt will be continued on Dilaudid as needed. Pt was d/w Dr. Watts and he concurred. Subjective Date patient seen: Apr 11, 2016 Time patient seen: 11:00 - am Allergies: Coded Allergies: No Known Allergies (Verified , 12/24/09) Subjective Constitutional: Denies: chills, diaphoresis, fever, malaise, no symptoms, other , weakness HEENT: Denies: blurred vision, double vision, ear discharge, ear pain, eye pain , mouth pain, mouth swelling, no symptoms, nose congestion, nose pain, other, tearing, throat pain, throat swelling Cardiovascular: Denies: chest pain, edema, irregular heart rate, lightheadedness, no symptoms, other, palpitations, syncope Respiratory: Denies: SOB at rest, SOB with excertion, cough, no symptoms, orthopnea, other, shortness of breath, sputum, stridor, wheezing Gastrointestinal/Abdominal: Denies: abdomen distended, abdominal pain, black stools, blood in stool, constipated, diarrhea, difficulty swallowing, nausea, no symptoms, other, poor appetite, poor fluid intake, rectal bleeding, tarry stools, vomiting Genitourinary: Denies: burning, discharge, flank pain, frequency, hematuria, incontinence, no symptoms, other, pain, urgency Neurologic/Psychiatric: Denies: anxiety, depressed, emotional problems, headache, no symptoms, numbness, other, paresthesia, pre-existing deficit, seizure, tingling, tremors, weakness Endocrine: Denies: excessive sweating, flushing, increased hunger, increased thirst, increased urine, intolerance to cold, intolerance to heat, no symptoms, other, unexplained weight gain, unexplained weight loss Hematologic/Lymphatic: Denies: anemia, easy bleeding, easy bruising, no symptoms, other Subjective Pain has been stable and tolerated well on the Dilaudid which has kept his pain at a 5/10. At this time he is having a blood transfusion. Objective Last 24 Hour Vital Signs Date Time Temp Pulse Resp B/P Pulse Ox O2 Delivery O2 Flow Rate FiO2 04/11/16 11:32 19 96 Room Air 04/11/16 11:15 97.9 77 112/68 04/11/16 11:00 97.7 92 113/68 04/11/16 10:04 97.9 04/11/16 07:57 97.9 85 19 121/59 96 Room Air 04/11/16 04:00 98.1 95 16 112/66 95 Room Air 04/11/16 00:00 97.7 91 18 126/70 98 Room Air 04/10/16 20:00 98.2 108 16 142/86 97 Room Air 04/10/16 15:49 98.2 83 19 134/77 96 Room Air Intake and Output 04/10/16 04/11/16 19:00 07:00 Intake Total 1794 ml 1721.0 ml Output Total 1350 ml Balance 444 ml 1721.0 ml Intake Oral 860 ml 380 ml IV Total 934 ml 1341.0 ml Output Urine Total 1350 ml # Voids 3 5 # Bowel Movements 1 Laboratory Tests 04/10/16 12:10: White Blood Count 23.9#*H, Red Blood Count 2.56L, Hemoglobin 8.0L, Hematocrit 24.2L, Mean Corpuscular Volume 94, Mean Corpuscular Hemoglobin 31.3H, Mean Corpuscular Hemoglobin Concent 33.2, Red Cell Distribution Width 15.8H, Platelet Count 219, Mean Platelet Volume 8.1, Neutrophils (%) (Auto) , Lymphocytes (%) (Auto) , Monocytes (%) (Auto) , Eosinophils (%) (Auto) , Basophils (%) (Auto) , Differential Total Cells Counted 100, Neutrophils % ( Manual) 73, Lymphocytes % (Manual) 16L, Monocytes % (Manual) 6, Eosinophils % ( Manual) 2, Basophils % (Manual) 0, Band Neutrophils 3, Platelet Estimate Adequate, Platelet Morphology Normal, Hypochromasia 1+, Poikilocytosis 1+, Anisocytosis 1+, Target Cells Occasional 04/11/16 07:30: White Blood Count 15.6H, Red Blood Count 2.15L, Hemoglobin 6.6*L, Hematocrit 19.8L, Mean Corpuscular Volume 92, Mean Corpuscular Hemoglobin 30.5, Mean Corpuscular Hemoglobin Concent 33.1, Red Cell Distribution Width 16.0H, Platelet Count 243, Mean Platelet Volume 8.3, Neutrophils (%) (Auto) , Lymphocytes (%) (Auto) , Monocytes (%) (Auto) , Eosinophils (%) (Auto) , Basophils (%) (Auto) , Differential Total Cells Counted 100, Neutrophils % ( Manual) 70, Lymphocytes % (Manual) 12L, Monocytes % (Manual) 12H, Eosinophils % (Manual) 6H, Basophils % (Manual) 0, Band Neutrophils 0, Platelet Estimate Adequate, Platelet Morphology Normal, Hypochromasia 1+, Poikilocytosis 1+, Anisocytosis 1+, Polychromasia Occasional, Microcytosis 1+, Prothrombin Time 10.9, Prothromb Time International Ratio 1.1, Activated Partial Thromboplast Time 28, Sodium Level 139, Potassium Level 4.2, Chloride Level 100, Carbon Dioxide Level 25, Anion Gap 14, Blood Urea Nitrogen 8, Creatinine 0.6L, Estimat Glomerular Filtration Rate > 60, Glucose Level 115H, Calcium Level 8.8, Phosphorus Level 4.2, Magnesium Level 1.9, Total Bilirubin 1.9H, Direct Bilirubin 0.6H, Aspartate Amino Transf (AST/SGOT) 34, Alanine Aminotransferase ( ALT/SGPT) 41, Alkaline Phosphatase 178H, Lactate Dehydrogenase 439H, Total Protein 6.0L, Albumin 3.9, Globulin 2.1, Albumin/Globulin Ratio 1.8 Height (Feet): 5 Height (Inches): 10.00 Weight (Pounds): 150 Objective General Appearance: no apparent distress, alert EENT: PERRL/EOMI, normal ENT inspection Neck: normal alignment, supple Cardiovascular: normal rate, regular rhythm Abdomen: non tender, soft Extremities: ROM decreased due to patients pain Edema: no edema noted Arm (L), no edema noted Arm (R), no edema noted Leg (L), no edema noted Leg (R), no edema noted Pedal (L), no edema noted Pedal (R), no edema noted Generalized Neurologic: alert, oriented x 3 Skin: warm/dry ISMAEL CORTEZ. P.August Apr 11, 2016 11:40
--- NOTE | 2016-04-11 11:56 | General Progress Note ---
Assessment/Plan Assessment/Plan ASSESSMENT: 1. Sickle cell crisis. The patient is on fluids as well as pain control, currently is declining hydroxyurea even though discussed extensively can improve overall survival, minimize hospitalizations 2. Anemia 2/2 SS disease, ferritin 1400 3. Hyperbilirubinemia. 4. Leukocytosis secondary to likely hemolysis from sickle cell crisis. 5. History of avascular necrosis. 6. History of cholecystectomy. 7. Reticulocytosis RECOMMENDATIONS: 1. Monitor counts. 2. Transfuse today with 1unit prbc 3. Pain control. 4. Incentive spirometry to continue 5. Ultrasound of the abdomen is pending to evaluate liver and spleen. 6. Follow up on pain management recs. 7. Transfuse with 1 unit prbc if patient symptomatic 8. DVT prophylaxis with SCDs. 9. Recommend hydroxyurea and heme followup 10. staff. Thank you, Guicho Roy MD Subjective Constitutional: Reports: no symptoms HEENT: Reports: no symptoms Cardiovascular: Reports: no symptoms Respiratory: Reports: no symptoms Gastrointestinal/Abdominal: Reports: poor appetite Genitourinary: Reports: no symptoms Neurologic/Psychiatric: Reports: no symptoms Endocrine: Reports: no symptoms Hematologic/Lymphatic: Reports: anemia Allergies: Coded Allergies: No Known Allergies (Verified , 12/24/09) Subjective stable, no fevers or chills noted, no hematochezia or hematemesis reported Objective Last 24 Hour Vital Signs Date Time Temp Pulse Resp B/P Pulse Ox O2 Delivery O2 Flow Rate FiO2 04/11/16 11:32 19 96 Room Air 04/11/16 11:15 97.9 77 112/68 04/11/16 11:00 97.7 92 113/68 04/11/16 10:04 97.9 04/11/16 07:57 97.9 85 19 121/59 96 Room Air 04/11/16 04:00 98.1 95 16 112/66 95 Room Air 04/11/16 00:00 97.7 91 18 126/70 98 Room Air 04/10/16 20:00 98.2 108 16 142/86 97 Room Air 04/10/16 15:49 98.2 83 19 134/77 96 Room Air Intake and Output 04/10/16 04/11/16 19:00 07:00 Intake Total 1794 ml 1721.0 ml Output Total 1350 ml Balance 444 ml 1721.0 ml Intake Oral 860 ml 380 ml IV Total 934 ml 1341.0 ml Output Urine Total 1350 ml # Voids 3 5 # Bowel Movements 1 Laboratory Tests 04/10/16 12:10: White Blood Count 23.9#*H, Red Blood Count 2.56L, Hemoglobin 8.0L, Hematocrit 24.2L, Mean Corpuscular Volume 94, Mean Corpuscular Hemoglobin 31.3H, Mean Corpuscular Hemoglobin Concent 33.2, Red Cell Distribution Width 15.8H, Platelet Count 219, Mean Platelet Volume 8.1, Neutrophils (%) (Auto) , Lymphocytes (%) (Auto) , Monocytes (%) (Auto) , Eosinophils (%) (Auto) , Basophils (%) (Auto) , Differential Total Cells Counted 100, Neutrophils % ( Manual) 73, Lymphocytes % (Manual) 16L, Monocytes % (Manual) 6, Eosinophils % ( Manual) 2, Basophils % (Manual) 0, Band Neutrophils 3, Platelet Estimate Adequate, Platelet Morphology Normal, Hypochromasia 1+, Poikilocytosis 1+, Anisocytosis 1+, Target Cells Occasional 04/11/16 07:30: White Blood Count 15.6H, Red Blood Count 2.15L, Hemoglobin 6.6*L, Hematocrit 19.8L, Mean Corpuscular Volume 92, Mean Corpuscular Hemoglobin 30.5, Mean Corpuscular Hemoglobin Concent 33.1, Red Cell Distribution Width 16.0H, Platelet Count 243, Mean Platelet Volume 8.3, Neutrophils (%) (Auto) , Lymphocytes (%) (Auto) , Monocytes (%) (Auto) , Eosinophils (%) (Auto) , Basophils (%) (Auto) , Differential Total Cells Counted 100, Neutrophils % ( Manual) 70, Lymphocytes % (Manual) 12L, Monocytes % (Manual) 12H, Eosinophils % (Manual) 6H, Basophils % (Manual) 0, Band Neutrophils 0, Platelet Estimate Adequate, Platelet Morphology Normal, Hypochromasia 1+, Poikilocytosis 1+, Anisocytosis 1+, Polychromasia Occasional, Microcytosis 1+, Prothrombin Time 10.9, Prothromb Time International Ratio 1.1, Activated Partial Thromboplast Time 28, Sodium Level 139, Potassium Level 4.2, Chloride Level 100, Carbon Dioxide Level 25, Anion Gap 14, Blood Urea Nitrogen 8, Creatinine 0.6L, Estimat Glomerular Filtration Rate > 60, Glucose Level 115H, Calcium Level 8.8, Phosphorus Level 4.2, Magnesium Level 1.9, Total Bilirubin 1.9H, Direct Bilirubin 0.6H, Aspartate Amino Transf (AST/SGOT) 34, Alanine Aminotransferase ( ALT/SGPT) 41, Alkaline Phosphatase 178H, Lactate Dehydrogenase 439H, Total Protein 6.0L, Albumin 3.9, Globulin 2.1, Albumin/Globulin Ratio 1.8 Height (Feet): 5 Height (Inches): 10.00 Weight (Pounds): 150 General Appearance: no apparent distress EENT: TMs normal Neck: normal inspection Cardiovascular: normal rate Respiratory/Chest: lungs clear Abdomen: no mass Extremities: non-tender Edema: 1+ Leg (L), 1+ Leg (R) Edema: mild edema Neurologic: alert Skin: warm/dry GUICHO ROY Apr 11, 2016 11:56
--- NOTE | 2016-04-11 13:37 | Pulmonology Progress Note ---
Assessment/Plan Problems: (1) Sickle cell crisis (2) Anemia (3) Intractable pain Assessment/Plan receiving blood now continue iv hydration check LDH, less dc home today pain control Subjective ROS Limited/Unobtainable: No Constitutional: Reports: no symptoms HEENT: Repors: no symptoms Respiratory: Reports: no symptoms Allergies: Coded Allergies: No Known Allergies (Verified , 12/24/09) Objective Last 24 Hour Vital Signs Date Time Temp Pulse Resp B/P Pulse Ox O2 Delivery O2 Flow Rate FiO2 04/11/16 11:32 19 96 Room Air 04/11/16 11:15 97.9 77 112/68 04/11/16 11:00 97.7 92 113/68 04/11/16 10:04 97.9 04/11/16 07:57 97.9 85 19 121/59 96 Room Air 04/11/16 04:00 98.1 95 16 112/66 95 Room Air 04/11/16 00:00 97.7 91 18 126/70 98 Room Air 04/10/16 20:00 98.2 108 16 142/86 97 Room Air 04/10/16 15:49 98.2 83 19 134/77 96 Room Air Intake and Output 04/10/16 04/11/16 19:00 07:00 Intake Total 1794 ml 1721.0 ml Output Total 1350 ml Balance 444 ml 1721.0 ml Intake Oral 860 ml 380 ml IV Total 934 ml 1341.0 ml Output Urine Total 1350 ml # Voids 3 5 # Bowel Movements 1 General Appearance: WD/WN HEENT: normocephalic, atraumatic Respiratory/Chest: chest wall non-tender, lungs clear Cardiovascular: normal peripheral pulses, normal rate Abdomen: normal bowel sounds, soft, non tender Genitourinary: normal external genitalia Extremities: no clubbing Skin: no rash Laboratory Tests 04/11/16 07:30: White Blood Count 15.6H, Red Blood Count 2.15L, Hemoglobin 6.6*L, Hematocrit 19.8L, Mean Corpuscular Volume 92, Mean Corpuscular Hemoglobin 30.5, Mean Corpuscular Hemoglobin Concent 33.1, Red Cell Distribution Width 16.0H, Platelet Count 243, Mean Platelet Volume 8.3, Neutrophils (%) (Auto) , Lymphocytes (%) (Auto) , Monocytes (%) (Auto) , Eosinophils (%) (Auto) , Basophils (%) (Auto) , Differential Total Cells Counted 100, Neutrophils % ( Manual) 70, Lymphocytes % (Manual) 12L, Monocytes % (Manual) 12H, Eosinophils % (Manual) 6H, Basophils % (Manual) 0, Band Neutrophils 0, Platelet Estimate Adequate, Platelet Morphology Normal, Polychromasia Occasional, Hypochromasia 1+ , Poikilocytosis 1+, Anisocytosis 1+, Microcytosis 1+, Prothrombin Time 10.9, Prothromb Time International Ratio 1.1, Activated Partial Thromboplast Time 28, Sodium Level 139, Potassium Level 4.2, Chloride Level 100, Carbon Dioxide Level 25, Anion Gap 14, Blood Urea Nitrogen 8, Creatinine 0.6L, Estimat Glomerular Filtration Rate > 60, Glucose Level 115H, Calcium Level 8.8, Phosphorus Level 4.2, Magnesium Level 1.9, Total Bilirubin 1.9H, Direct Bilirubin 0.6H, Aspartate Amino Transf (AST/SGOT) 34, Alanine Aminotransferase (ALT/SGPT) 41, Alkaline Phosphatase 178H, Lactate Dehydrogenase 439H, Total Protein 6.0L, Albumin 3.9, Globulin 2.1, Albumin/Globulin Ratio 1.8 04/11/16 12:05: Hemoglobin A [Pending], Hemoglobin A2 [Pending], Hemoglobin C [Pending], Hemoglobin F () [Pending], Hemoglobin S [Pending], Variant Hemoglobin [ Pending], Hemoglobin Electrophoresis Interp [Pending], Hemoglobin Interpretation [Pending], Hemoglobin Solubility [Pending] Current Medications Medications (Trade) Dose Ordered Sig/Shell Route PRN Reason Start Time Stop Time Status Last Admin Dose Admin Acetaminophen (Tylenol) 650 mg Q4H PRN ORAL fever 04/06/16 16:15 05/06/16 16:14 04/08/16 22:36 Al Hydroxide/Mg Hydroxide (Mylanta II) 30 ml Q6H PRN ORAL dyspepsia 04/06/16 16:15 05/06/16 16:14 Dextrose STAT PRN IV Hypoglycemia 04/06/16 16:15 05/06/16 16:14 Ferrous Sulfate (Feosol) 325 mg THREE TIMES A DAY ORAL 04/09/16 18:00 05/09/16 17:59 04/11/16 09:33 Folic Acid (Folate) 1 mg DAILY ORAL 04/09/16 15:30 05/09/16 15:29 04/11/16 09:33 Hydromorphone HCl/ Dextrose (Dilaudid/D5W) 57 ml @ 228 mls/hr Q3H PRN IVPB severe pain 04/07/16 18:30 04/14/16 18:29 04/11/16 09:34 Lorazepam (Ativan 2mg/ml 1ml) 0.5 mg Q4H PRN IV For Anxiety 04/06/16 16:15 04/13/16 16:14 Ondansetron HCl (Zofran) 4 mg Q6H PRN IVP Nausea & Vomiting 04/06/16 16:15 05/06/16 16:14 Polyethylene Glycol (Miralax) 17 gm HSPRN PRN ORAL Constipation 04/06/16 16:15 05/06/16 16:14 04/09/16 21:35 Sodium Chloride 1,000 ml @ 75 mls/hr [id number] IV 04/06/16 17:30 05/06/16 17:29 04/10/16 23:02 Vitamin D (Vitamin D) 1,000 intlu DAILY ORAL 04/09/16 15:30 05/09/16 15:29 04/11/16 09:33 Zolpidem Tartrate (Ambien) 5 mg HSPRN PRN ORAL Insomnia 04/06/16 16:15 05/06/16 16:14 CATHERINE WAGONER Apr 11, 2016 13:37
--- NOTE | 2016-04-13 08:23 | Discharge Summary ---
Discharge Summary Hospital Course Date of Admission Apr 06, 2016 at 09:05 Date of Discharge Apr 11, 2016 at 22:29 Admitting Diagnosis sickle cell crisis HPI Ron Stone is a 51 year old male who was admitted on Apr 06, 2016 at 09: 05 for Sickle Cell Crisis Hospital Course dc summary dictated # [id number] Discharge Medications New Medications: Hydrocodone/Acetaminophen 10-300 Mg Tablet (Vicodin Hp 10-300 Mg Tablet) 1 Each Tablet 1 TAB ORAL Q4H PRN, #30 TAB 0 Refills Continued Medications: Cholecalciferol (Vitamin D3)* (Vitamin D*) 1,000 Unit Tablet 2000 UNITS ORAL DAILY, #30 TAB 0 Refills Ferrous Sulfate (Ferrous Sulfate) 325 Mg Tablet.dr 325 MG ORAL, #30 TAB 0 Refills Folic Acid* (Folic Acid*) 1 Mg Tablet 1 MG PO DAILY, #10 TAB Take 1 tablet by mouth every day. Hydrocodone Bit/Acetaminophen 5-325* (Reading 5-325*) 1 Each Tablet 1 TAB ORAL Q6H, #20 TAB Hydrocodone/Acetaminophen 7.5-750 (Vicodin Es 7.5-750) 1 Each Tablet 1 TAB PO Q8H, #10 TAB Morphine Sulfate* (Ms Contin*) 30 Mg Tablet.er 30 MG PO Q12H Discharge Condition Upon Discharge: improving Discharge Disposition Patient was discharged to Home (01) Discharge Diagnoses: Discharge Instructions Discharge Instructions Special Instructions I have been assigned to complete a D/C Summary on this account. I was not involved in the patient management Rosy Miranda NP ([facility]) Apr 13, 2016 08:23
--- NOTE | 2016-04-13 14:00 | Diagnostic Imaging Report ---
Indication:Abdominal pain. Sickle cell anemia Technique: Grayscale and duplex Doppler imaging of the abdomen performed. Comparison: None Findings: The study is limited. The liver, demonstrated part of the pancreas, aorta and IVC, both kidneys, appear unremarkable. The spleen is only questionably identified. The gallbladder is absent. CBD measures 8.5 mm. There is no biliary ductal dilatation identified. Doppler evaluation of the main portal vein shows patency. There is no ascites. No hydronephrosis seen. Impression: No acute findings appreciated. However the study is limited. Questionable presence of the spleen. Status post cholecystectomy
--- NOTE | 2016-04-14 01:07 | Discharge Summary 2 SIG ---
DATE OF ADMISSION: 04/06/2016 DATE OF DISCHARGE: 04/11/2016 REASON FOR ADMISSION: The patient is a 51-year-old male with a history of sickle cell disease, who presented to the emergency room having severe pain, which started the day before presentation. Pain in bilateral shoulders and overall in most of his joints. He denied fever or chills, but reported that he has had a little cold. He denied shortness of breath and chest pain. He denies productive cough. No nausea. No vomiting. No diarrhea. No abdominal pain. No dysuria. Pain described as severe, constant, aching, nonradiating, mainly in joints, rated the pain 10/10 on the scale 1 to 10. Denied headache. Last admission for sickle cell exacerbation was in December of last year. The patient was found to be afebrile with leukocytosis and anemic, high reticulocyte count. Chest x-ray was negative for any acute cardiopulmonary disease. Total bilirubin was 2.0. Direct bilirubin 0.5. AST was 59. WBC 17.3, hemoglobin 8.0, and hematocrit 23.5. The patient admitted for further management. ADMITTING DIAGNOSES: 1. Sickle cell crisis. 2. Anemia. 3. Intractable pain secondary to sickle cell crisis 4. Leukocytosis. HOSPITAL STAY: The patient admitted on the floor. IV hydration provided. Supplemental oxygen provided as needed. Hematology and pain specialist consults were requested. LDH and bilirubin were trending. For hemoglobin of 6.6 and hematocrit 19.8, patient undergone transfusion of two units of packed red blood cells. Anemia workup revealed stable iron with high ferritin, normal folate; electrolytes were stable. LDH was trending down from initial 632 to 439 on the day of discharge. Memorandum Statement Clerk recommended hydroxyurea, however, the patient declined it , stating that he used to take it and did not see any effect. Memorandum Statement Clerk recommended to follow up with the Hematology Clinic as outpatient as well as to have ultrasound of the abdomen to assess liver and spleen . Pain specialist followed. The patient with history of avascular necrosis as well as osteoarthritis of multiple joint pain, management optimized and pain was controlled. Both customer relations consultant cleared for discharge. DISCHARGE INSTRUCTIONS: The patient discharged home. Followup with Hematology clinic. DISCHARGE MEDICATIONS: See medication reconciliation list. FINAL DIAGNOSES: 1. Sickle cell crisis. 2. Anemia. 3. Status post blood transfusion. 4. Leukocytosis, reactive secondary to hemolysis from sickle cell crisis. 5. Hyperbilirubinemia secondary to sickle cell crisis. 6. Osteoarthritis in multiple joints. 7. History of avascular necrosis. 8. Intractable pain in multiple joints- secondary to pain crisis and osteoarthritis- improved. Jessica Mchugh M.D. I have been assigned to dictate discharge summary on this account and I was not involved in the patient's management. Rosy Miranda ([facility] N.PPily DR: JESUS JOB#: [id number] CC: JEFF[place]
[2016-04-15 12:20] LABS: FETAL HEMOGLOBIN 11.4 % (0.0-2.0); HEMOGLOBIN A2 4.1 % (0.7-3.1); HGB S 84.5 % (0.0)
--- NOTE | 2016-05-08 03:26 | Cardiology Report ---
APPROVED REPORT EKG Measurement Heart [id number] VT [id number] Normal sinus rhythm Prolonged QT Abnormal ECG
== END 2016-04-11 22:29 | disposition home or self-care (01) | DRG 662 ==
LOC: ENRESERVDT → ENRESERVTM → EMR 08:20 → 4E 09:05 → EDBEDREQ 11:56 → 4E 18:50
PROC: 30233N1 Transfusion of Nonautologous Red Blood Cells into Peripheral Vein, Percutaneous Approach (ICD-10-PCS; principal; 2016-04-11)
DX: D57.00 Hb-SS disease with crisis, unspecified (principal); M87.9 Osteonecrosis, unspecified; M15.9 Polyosteoarthritis, unspecified; R70.1 Abnormal plasma viscosity
CPT/HCPCS: 36415; 71010; 76700; 80053; 80300; 81003; 82248; 82550; 82553; 82728; 82746; 83010; 83020; 83540; 83550; 83615; 83735; 83880; 84100; 84484; 85007; 85025; 85044; 85610; 85651; 85730; 86140; 86850; 86900; 86901; 86920; 93005; J2405

== ENCOUNTER 2020-03-04 09:52 | Outpatient (CLI) | payer MEDICAID ==
[2020-03-03 12:12] VITALS: BP 139/92
[~2020-03-04] VITALS: Ht 177.8 cm; Wt 58.5 kg
[~2020-03-04 09:52] MED LIST changes: +BACITRACIN ZIN1 EACH TOPIC; +CEPHALEXIN500 MG ORAL; +VICODIN HP 10-1 EACH ORAL
[2020-03-06] MEDS ORDERED: LISINOPRIL5 MG ORAL (12:18)
[2020-03-06] MEDS ORDERED: HYDREA500 MG PO (12:18)
[2020-03-06] MEDS ORDERED: CARVEDILOL3.125 MG ORAL (12:18)
--- NOTE | 2020-03-08 17:45 | Consultation ---
DATE OF CONSULTATION: 03/04/2020 GASTROLOGY CONSULTATION CHIEF COMPLAINT: Referral for screening colonoscopy. PAST MEDICAL HISTORY: 1. hypertension. 2. Pulmonary hypertension. 3. Mitral regurgitation. 4. Peptic ulcer disease. 5. Gout. PAST SURGICAL HISTORY: Gallbladder surgery, right hip surgery, left hip surgery. MEDICATIONS: Please see medication reconciliation list. FAMILY HISTORY: No family history of GI malignancies. SOCIAL HISTORY: The patient drinks alcohol occasionally. Denies any tobacco or IV drug abuse. ALLERGIES: No allergies. REVIEW OF SYSTEMS: The patient is positive for periodic GERD symptoms, but otherwise negative. PHYSICAL EXAMINATION: VITAL SIGNS: Temperature 98.2, blood pressure 139/92, pulse is 93, respirations 20. HEENT: Normocephalic, atraumatic. Sclerae anicteric. NECK: Supple. No evidence of obvious lymphadenopathy. CARDIOVASCULAR: Regular rate and rhythm. Plus S1-S2. LUNGS: Clear to auscultation bilaterally. ABDOMEN: Soft, nontender. No rebound. No guarding. No peritoneal sign. EXTREMITIES: No cyanosis, no clubbing, no edema. ASSESSMENT AND PLAN: This is a 55-year-old male with history of who is referred to us for screening colonoscopy. The patient was given the information about colonoscopy. Risks and benefits of the procedure were explained to him. We will schedule him as soon as authorization is obtained. Sd Rhoades M.D. DR: MAYKEL JOB#: [id number] CC:
== END 2020-03-04 11:52 | disposition home or self-care (01) ==
LOC: PAN 09:52
DX: K21.9 Gastro-esophageal reflux disease without esophagitis (principal); I10 Essential (primary) hypertension; Z87.11 Personal history of peptic ulcer disease
CPT/HCPCS: G0463